=== PATIENT | male | born 1995 | race Caucasian/White ===

== ENCOUNTER 2023-06-24 17:31 | Emergency (ER) | payer OTHER ==
[2023-06-24 17:36] VITALS: BP 138/88; PULSE 90; RESP 18; TEMP 98; BMI 28.3
[2023-06-24] MEDS ORDERED: ACETAMINOPHEN 325 MG TABLET (FP) PO ONE (18:35)
[2023-06-24] MEDS ORDERED: ACETAMINOPHEN 325 MG TABLET (FP) ONE (19:31)
[2023-06-24 19:49] LABS: BASO % 0.5 % (0-2.0); EOS % 1.9 % (0-4.5); HEMATOCRIT 43.3 % (35.4-49); HEMOGLOBIN 15.3 GM/dL (11.7-16.9); LYMPH % 26.2 % (8-40); MCH 32.8 pg (25.7-33.7); MCHC 35.3 g/dl (32.0-35.9); MEAN CELL VOLUME 92.8 fl (80-96); MEAN PLT VOLUME 9.2 fl (7.5-11.1); MONO % 8.2 % (3.8-10.2); NEUT % 63.2 % (42.8-82.8); PLATELET COUNT 199 10^3/uL (134-434); RBC 4.66 M/mm3 (4.00-5.60); RDW 12.6 % (11.9-15.9); WHITE BLOOD COUNT 6.9 K/mm3 (4.0-10.0)
[2023-06-24 20:02] LABS: POTASSIUM 3.5 mmol/L (3.5-5.1)
[2023-06-24 20:05] LABS: ALBUMIN 4.5 g/dl (3.4-5.0); BLOOD UREA NITROGEN 7.6 mg/dL (7-18); CALCIUM 9.3 mg/dL (8.5-10.1)
[2023-06-24 20:08] LABS: CREATININE 0.9 mg/dL (0.55-1.3)
[2023-06-24 20:10] LABS: BILIRUBIN,TOTAL 0.5 mg/dL (0.2-1); TOT PROT 7.8 g/dl (6.4-8.2)
== END 2023-06-24 22:57 | disposition home or self-care (01) ==
LOC: JER 17:31
DX: R07.89 Other chest pain (principal); R61 Generalized hyperhidrosis; R06.02 Shortness of breath; R20.2 Paresthesia of skin; R47.9 Unspecified speech disturbances; Z20.822 Contact with and (suspected) exposure to COVID-19
CPT/HCPCS: 0241U-QW; 36415; 71046-TC-FY; 80053; 84484; 85025; 93005; 93010; 99285-25